=== PATIENT | male | born 2005 | race Caucasian/White ===

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

== ENCOUNTER 2025-03-25 13:40 | Outpatient (CLI) | payer OTHER, SELFPAY ==
--- NOTE | ~2025-03-25 | CT_ITS ---
EXAMINATION: CT sinus wo con COMPARISON: None HISTORY: Chronic sinusitis, deviated septum TECHNIQUE: Axial images were obtained without IV contrast. Sagittal, coronal reconstruction images were obtained from the axial views. CT scan performed using dose optimization techniques including the following automated exposure control; adjustment of mA and/or kV; use of iterative reconstruction technique. Automatic exposure control was used to reduce radiation dose. Permanent radiation dose record is archived to PACS. FINDINGS: Visualized brain parenchyma, optic globes and soft tissues appear unremarkable. Moderate mucosal thickening of the frontal sinuses and ethmoidal air cells. Severe opacification of the right maxillary sinus and moderate opacification of the left maxillary sinus with underlying polyp formation. The ostiomeatal complexes bilaterally are patent but narrowed. The nasal septum is deviated to the right. There is mild thickening of the turbinates with narrowing of the right nasal cavity. Moderate to severe mucosal thickening in the sphenoid sinuses. There is thickening of the sphenoid sinus rojas, no osseous destruction is identified. IMPRESSION: Severe sinusitis with probable polyp formation Reviewed, dictated and finalized at location P.
== END 2025-03-25 13:41 | disposition home or self-care (01) ==
LOC: MICIMG 13:41
PROVIDERS: PCP Family Medicine; Visit Provider Otolaryngology
DX: J32.9 Chronic sinusitis, unspecified (principal); J33.9 Nasal polyp, unspecified; J34.2 Deviated nasal septum
CPT/HCPCS: 70486

== ENCOUNTER 2025-04-21 05:59 | Day surgery (SDC) | payer OTHER, SELFPAY ==
[2025-04-04 12:28] VITALS: BMI 21.7
--- NOTE | 2025-04-19 16:07 | P.HP_ITS ---
H&P: HPI History of Present Illness Date/Time: 04/19/25 16:07 Chief Complaint: Septal deviation turbinate hypertrophy nasal obstruction nasal congestion chronic sinusitis Narrative: planned surgical procedure Review of Systems Review of Systems: All systems reviewed & are unremarkable except as noted in HPI and below [facility] Social History Social History Smoking status: Never smoker Second hand tobacco smoke exposure: Yes Alcohol intake: never Substance use: never Substance use type: does not use Living arrangements: with family Spiritual care concerns: No Meds Home Medications and Allergies Home Medications ?Medication ?Instructions ?Recorded ?Confirmed ?Type budesonide 0.25 mg/2 mL suspension 0.25 mg (2 mL) irri gation BID #30 03/14/25 04/04/25 Rx for nebulization amps mupirocin 2 % topical ointment 1 applic topical BID #2 2 grams 04/15/25 Rx (Centany) prednisone 10 mg tablet 10 mg PO DAILY #7 tabs 04/15 Rx Allergies Allergy/AdvReac Type Severity Reaction Status Date / Time No Known Allergies Allergy Unknown Verified 04/04/25 12:28 Exam Narrative: septal deviation turbinate hypertrophy chronic appearing sinuses Assessment and Plan Assessment and plan (1) Polyp, maxillary sinus: Code(s): J33.8 - Other polyp of sinus Status: Acute Assessment and Plan: Plan OR for possible endoscopic assisted septoplasty, bilateral inferior turbinate reduction with outfracture, revision bilateral image guided endoscopic maxillary antrostomies, bilateral image guided endoscopic total ethmoidectomies, bilateral image guided endoscopic sphenoidotomies, left revision image guided endoscopic frontal sinusotomy, right image guided endoscopic frontal sinusotomy total operative time 2 hours. Anesthesia general. worse were discussed including central incisor numbness which could be permanent difficulty swallowing postoperative bleeding infection septal perforation need for further procedures failure to resolve symptoms CSF leak brain brain damage change in vision total blindness hearing risk medication use. Need further testing sent procedures. Total blindness change in vision. His time off work time off school inherent risk medication use. Patient voiced understanding and agreed. (2) Chronic sinusitis: Code(s): J32.9 - Chronic sinusitis, unspecified Status: Acute (3) Nasal septal deviation: Code(s): J34.2 - Deviated nasal septum Status: Acute (4) Hypertrophy of both inferior nasal turbinates: Code(s): J34.3 - Hypertrophy of nasal turbinates Status: Acute (5) Nasal polyps: Code(s): J33.9 - Nasal polyp, unspecified Status: Acute
[2025-04-21] VITALS (7 sets, daily range): BP systolic 117–144; BP diastolic 69–81; PULSE 59–93; RESP 10–16; TEMP 36.2–36.4; O2SAT 99–100; BMI 20.9
[2025-04-21] MEDS: ACETAMINOPHEN 500 MG TABLET 1000 MG PO (06:56)
--- NOTE | 2025-04-21 07:22 | P.PNAN_ITS ---
Anes - Initial Pre Proc Eval Procedure: Operation Date: 04/21/25 07:30 Proposed Procedures s Possible Endoscopic Assisted Septoplasty, Bilateral Inferior Turbinate Reduction with Outfracture - Laurent Mclaughlin MD p Image Guided Endoscopic Bilateral Total Ethmoidectomy, Bilateral Sphenoidotomy, Right Frontal Sinusotomy, Revision Image Guided Endoscopic Assisted Bilateral Maxillary Antrostomy and Left Frontal Sinusotomy - Laurent Mclaughlin MD Date/Time: 04/21/25 07:22 Surgeon: Laurent Mclaughlin MD Pre Op Diagnosis: Nasal Polyps, Hypertrophy of Nasal Turbinates Patient Data Age: 19 Gender: M Height: 1.83 m Weight: 70.1 kg Last Vital Signs Temp 36.4 C 04/21/25 06:29 Pulse 59 L 04/21/25 06:29 Resp 16 04/21/25 06:29 BP 117/69 04/21/25 06:29 Pulse Ox 100 04/21/25 06:29 O2 Del Method Room Air 04/21/25 06:29 Allergies Allergy/AdvReac Type Severity Reaction Status Date / Time No Known Allergies Allergy Unknown Verified 04/21/25 06:18 Home Medications ?Medication ?Instructions ?Recorded ?Confirmed ?Type budesonide 0.25 mg/2 mL suspension 0.25 mg (2 mL) irri gation BID #30 03/14/25 04/21/25 Rx for nebulization amps mupirocin 2 % topical ointment 1 applic topical BID #2 2 grams 04/15/25 04/21/25 Rx (Centany) Patient hx anesthesia problems: none Family hx anesthesia problems: none Results Review: All pre-operative results and documents have been reviewed as part of the pre- operative evaluation. [facility] Social History Social History Smoking status: Never smoker Second hand tobacco smoke exposure: Yes Alcohol intake: never Substance use: never Substance use type: does not use Living arrangements: with family Spiritual care concerns: No Anes - Eval Final PreProcedure Day of Procedure 04/21/25 07:22 Heart: regular rate and rhythm Lungs: clear to auscultation Airway: Mallampati scale class II Neurological: alert and oriented Last oral intake: >/= 8 hours ASA classification: I Emergent: no Anesthetic plan: proceed Anesthesia type and monitoring: general Results Review: All pre-operative results and documents have been reviewed as part of the pre- operative evaluation. Informed Consent: The patient's anesthetic plan and its attendant risks and benefits were discussed with the patient/family/POA. Questions were solicited and answers provided to the satisfaction of the patient/family/POA.
--- NOTE | 2025-04-21 07:28 | WPDHPUPDATE1 ---
History and Physical Update Update Date/Time: 04/21/25 07:28 History and Physical has been reviewed, including an updated exam of the patient. There are NO changes in the patient's condition. Risks, benefits, and alternatives have been discussed and questions answered. Patient agrees to proceed with procedure. Possible middle turbinectomies as well.
[2025-04-21] MEDS: LACTATED RINGERS 1,000 ML 150 ML IV CONT (07:40)
[2025-04-21] MEDS: MUPIROCIN 2% OINT 22 GM TUBE 1 APPLIC (08:41)
[2025-04-21] MEDS: LIDO 1%/EPINEPHRINE 1:100,000 20 ML VIAL (08:41)
[2025-04-21] MEDS: OXYMETAZOLINE HCL 0.05% NAS 15 ML BTL (*BKC) 1 SPRAY (08:41)
[2025-04-21] MEDS: TOBRAMYCIN SULFATE 80 MG/2 ML VIAL (08:42)
--- NOTE | 2025-04-21 09:56 | SUR.OPER ---
mihir splint- [id number] intersect exp-
[2025-04-21] MEDS: LACTATED RINGERS 1,000 ML 30 ML IV CONT (10:27)
--- NOTE | 2025-04-21 10:30 | WPDANESPN ---
Anes - Prog Note Post-Op Date/Time: 04/21/25 10:30 Cardiovascular status: normal Respiratory status: normal Airway patency: baseline Mental status: baseline Post-Op hydration status: normal Vital Signs: Last Vital Signs Temp 36.4 C 04/21/25 06:29 Pulse 90L 04/21/25 06:29 Resp 15 04/21/25 06:29 BP 144/74 04/21/25 06:29 Pulse Ox 100 04/21/25 06:29 O2 Del Method Room Air 04/21/25 06:29 Pain Score (VAS): 0 I/O: Intake & Output 04/20/25 04/21/25 04/21/25 23:59 07:59 15:59 Intake Total 0 Balance 0 Patient Feedback: Patient satisfied with anesthetic care.
--- NOTE | 2025-04-21 10:37 | W.PM.PROC2 ---
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 Bilateral image guided maxillary antrostomies endoscopic 2. Bilateral endoscopic image guided total ethmoidectomies 3. Bilateral image guided endoscopic frontal sinusotomies 4. Bilateral middle turbinectomies 5. Bilateral Image guided endoscopic sphenoidotomies 6. Bilateral inferior turbinate outfracture 7. Resection of right sinonasal cyst versus tumor Surgeon Laurent Mclaughlin MD Anesthesia General Indications See above Findings Left-sided polypoid inflamed edema in all the aforementioned sinuses especially those that were not yet operated on. Right-sided same findings right-sided maxillary sinus large tumor versus the sent for pathology it is pedicled on the anterior the lateral sinus wall making it very difficult to get the entire stalk should be a tumor. Obstructive middle turbinates and obstructive inferior turbinates Description of Procedure Patient identified consent verified preoperative holding area. Patient brought to the operating room. Time-out performed. General anesthesia induced endotracheal tube secured airway. Patient prepped draped position procedure confirmed 2nd time-out performed. Image guidance initiated and confirmed very good guidance. Nasal passages viewed inferior turbinates outfractured there is no real soft tissue to debride. Middle turbinates were obstructive completely blocking the nasal passages. Especially on the right side. The stalks were injected this was a bilateral procedure straight the through cut utilized to remove the middle turbinates the stumps were cauterized with Bovie suction electrocautery setting of 15. Minimal bleeding. Maxillary antrostomies were revised using backbiter straight through cut image guidance to ensure the surgical os connected to the natural os. Total ethmoidectomies were performed with image guidance J curette Sheldonrison microdebrider straight through cut and Dominick. Sphenoidotomy performed with image guidance 3 year Kerrison sphenoid punch and microdebrider with image guidance. Frontal sinusotomies on the left side was performed with the Hosemann image guidance and a image guided suction. On the right-sided frontal sinusotomy performed with suction Hosemann care since draft instruments. A propel stent was placed on the right side as it was a new opening. But even mucosa left-sided was really edematous given that was obstructed by the middle turbinate. Attention was then turned to the cyst 1st tumor in the right maxillary sinus. It was grasped with up-biting Dickson sleeves sent for pathologic analysis then it was taken to the lateral anterior wall with a 70 degree scope and rad 40 rad 60 microdebrider. The stalk was then cauterized. I was unable to cauterize the entire stalk given how anterior was. Patient tolerated the procedure well blood loss 25 cc. I performed all dictated portions. Wound was copiously irrigated out with sterile normal saline. No active bleeding. All exposed arteries were cauterized. Care the patient back to Anesthesiology patient taken to PACU in good condition. Estimated Blood Loss 25 Drains No Packing No Pathology Yes Complications No immediate complications Condition Stable Disposition PACU [facility] Billing Surgery - Charge Forward: Surgery Billing
== END 2025-04-21 11:48 | disposition home or self-care (01) ==
PROVIDERS: PCP Family Medicine; Visit Provider Otolaryngology
PROC: (CPT 31256; 2025-04-21 07:30)
DX: J32.9 Chronic sinusitis, unspecified (principal); J34.3 Hypertrophy of nasal turbinates; J33.9 Nasal polyp, unspecified
CPT/HCPCS: 31256; 31257; 31276; 30130; 61782

== ENCOUNTER 2025-04-22 07:28 | Outpatient (NON) | payer OTHER, SELFPAY ==
--- NOTE | 2025-04-21 | S_PTH ---
PATIENT: Amauri Mart LOC: [facility] U#:[id number] AGE/SX: 19/M ROOM: RE04/22/[address]: Laurent Mclaughlin MD : 2005 BED: DIS: 04/22/2025 SPEC #: [id number] RECD: 04/22/25 08:50 STATUS: NEHEMIAH RESridevi #: [id number] SHANNON: 04/21/25 00:[address]: Laurent Mclaughlin DEPT: [facility] Surgical RECD BY: Amy Martin ENTERED: 04/22/25 08:50 SP TYPE: Surgical OTHR DR: Kamran Fernández, M.DClare Tissues: A - LESION Procedures: Hematoxylin and Eosin Stain Gross and Microscopic Level 4
--- OUTSIDE RECORDS SUMMARY | 2025-04-22 07:32 | XMS_ITS | Clinical Summary ---
Author Organization [facility] Address [address] [place] [address] Care Team Providers Care See Wheeler Name Role Phone Bel Rivera MD Unavailable [phone] Deborah Valles NP Primary Care Provider [phone] Allergies No known active allergies Medications fluticasone [...] left shoulder 03/11/2019 03/22/2019 Injury while playing [place] football 03/11/2019 03/22/2019 Traumatic closed displaced f [...] CDT): Negative exam at this time. Discussed syfyo-sy-cizd protocol w/FOP. Reviewed red flags; what would warrant rtc or ED for further eval. Discussed brain rest; rest form TV/computer/phone screens. Limit reading, stop activities if provoking CAMPBELL. [facility] 03/22/2019 Assessment & [...] Encounters Date Type Department Care Team Description 03/25/2025 Orders Only [facility] Health Information Management [address] [place] [id number] Scanning, Provider from Last 3 Months Immunizations Immunization Administration [...] drink = 0.6 oz pur e alcohol) [facility] Utilities Answer Date Recorded In the past 12 months has [facility] [employer], oil, or water [employer] threatened to shut off services in your [...] or ex-partner? No 04/03/2024 Social Connection and Isolation Panel Answer Date Recorded In a typical week, how many times do you talk on the phone with family, friends, or neighbors? More than three times a week 04/03/2024 How often do you get togethe r with friends or relatives? More than three times a week 04/03/2024 How often do you attend [facility] or mu-ism services? More than 4 times per year 04/03/2024 Do you belong to any clubs o r organizations such as roman catholic groups, unions, fraternal or athletic groups, or [...] staff should administer the PHQ-9) 0 04/03/2024 [facility] - Occupational Stress [...] any time in the past 12 m [facility], were you homeless or living in a prison (including now)? 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[employer] Gender Identity Not on file Sexual Orientation Not on file Growth Chart Information Age Height Weight Aptylg-eoj-mayf th Percentile BMI Percentile Head Circum Head [...] 82.07%* 2021 16 years 181.6 cm (5' 11.5) 79.7 kg (175 lb 9.6 oz) 84.59%* 2021 15 years 182.9 cm (6') 76.7 kg (169 lb) 77.73%* 2021 15 years 79 kg (174 lb 3.2 oz) 2020 15 years 77.2 kg (170 lb 1.6 oz) 2020 15 years 179 cm (5' 10.47) 77 kg (169 lb 12.1 oz) 87.25%* 2020 15 years 83.9 kg (185 lb) 2020 14 years 179.1 cm (5' 10.5) 68.9 kg (151 lb 12.8 oz) 76.78%* 2019 13 years 62.7 kg (138 lb 4.8 oz) 2018 13 years 172.7 cm (5' 7.99) 56.7 kg (125 lb) 56.64%* 2018 13 years 172.7 cm (5' 8) 62.1 kg (137 lb) 77.46%* 2018 13 years 172.7 cm (5' 8) 62.6 kg (138 lb) 79.27%* 2018 13 years 172.7 cm (5' 8) 61.5 kg (135 lb 8 oz) 76.26%* 2018 12 years 55.3 kg (122 lb) 2018 11 years 158.1 cm (5' 2.25) 47.6 kg (105 lb) 69.12%* 2017 11 years 151.1 cm (4' 11.5) 42.6 kg (94 lb) 72.28%* 2016 9 years 144.1 cm (4' 8.75) 39.9 kg (88 lb) 84.06%* 2015 8 years 32.7 kg (72 lb) 2014 8 years 31.3 kg (69 lb) 2014 8 years 30.6 kg (67 lb 8 oz) 2013 6 years 24.7 kg (54 lb 8 oz) 2011 * CDC (Boys, 2-20 Years) Last Filed Vital Signs [...] 08/22/2024 9:3 5 AM CDT Growth Chart: [facility] (Boys, 2-2 0 Years) Plan of Treatment Health Maintenance Due Date Last Done Comments Meningococcal B Vaccine (1 o f 2 - Standard) 2021 Regular Well Visit/Exam 18-64 12/29/2023 Covid-19 Vaccine (3 - 2024-2 6 season) 2025 03/29/2021, 03/08/2021 Depression Screening 04/03/2025 04/03/2024, 04/03/2024, 02/04/2020, Additional history exists DTaP/Tdap/Td Vaccine (7 - Td or Tdap) 12/30/2026 12/30/2016, 01/20/2011, 04/05/2007, Additional history exists Hepatitis B Screening Completed 07/06/2006 , 01/30/2006, 2005 Pneumococcal vaccine <65 Completed 007, 07/06/2006, 05/11/2006, Additional history exists Varicella Vaccines Completed 01/20/2011, 01/04/2007 HPV Vaccines Completed 11/30/2017, 12/30/2016 Meningococcal Vaccine Completed 03/01/2023, 017 Hepatitis C Screening Completed 04/03/2024 Influenza Vaccine Discontinued Procedures Procedure Name Priority Date/Time Associated Diagnosis Comments SCAN - RADIOLOGY/IMAGING 03/25/2025 HEPATITIS C ANTIBODY Routine 04/03/2024 3:52 PM CDT Need for hepatitis C screening test from Last 3 Months or Most Recently Relevant to Health Maintenance Results * SCAN - RADIOLOGY/IMAGING (03/25/2025) Anatomical Region Laterality Modality Other us Provider Scanning Final Result * Hepatitis C antibody Blood (04/03/2024 3:52 [...] last revised on 2019. Testing performed by: [facility], [address] [place] [address]., [id number] Blood 04/03/2024 3:52 PM CDT 04/03/2024 7:59 PM CDT Deborah Valles NP LAB MICROBIOLOGY - GENERAL ORDER DEON Final Result Performing Organization Address City/State/[facility] Co de Phone Number [facility] Department [place] [address] from Last 3 Months or Most Recently Relevant to Health Maintenance [facility] [employer]NA [facility] PPO Advance Directives For more information, please contact: [phone] * Full Code (Latest Code Status on File) Date Activated Date Inactivated Comments 03/02/2021 1:48 AM 03/02/2021 8:52 PM * Full Code Date Activated Date Inactivated Comments 03/10/2019 9:48 PM 03/11/2019 11:46 PM Care Teams See Wheeler Relationship Specialty Start Date End Date Deborah Valles NP [address] [place] [address] PCP - General Family Medicine 04/03/24 Bel Rivera MD [address] [place] [address] Consulting Physician Neurosurgery 03/02/21
== END 2025-04-22 07:29 | disposition home or self-care (01) ==
LOC: ANHLAB 07:30
PROVIDERS: PCP Family Medicine; Visit Provider Otolaryngology
DX: J34.89 Other specified disorders of nose and nasal sinuses (principal)
CPT/HCPCS: 88305